=== PATIENT | female | born 1995 | race Caucasian/White ===

== ENCOUNTER 2025-02-03 01:35 | Emergency (ER) | payer OTHER ==
[2025-02-03 01:42] VITALS: BP 120/71; PULSE 92; RESP 18; TEMP 98.2; BMI 36.8
[2025-02-03 02:27] LABS: HCG,QUALITATIVE URINE Negative
[2025-02-03 03:08] LABS: HCV DIAGNOSTIC IN-HOUSE W/RFLX NON-REACTIVE (NONREACTIVE); HIV INTERPRETATION NEGATIVE (NEGATIVE)
[2025-02-03 03:11] LABS: URINE APPEARANCE HAZY; URINE BILIRUBIN NEGATIVE (NEGATIVE); URINE COLOR YELLOW; URINE GLUCOSE (UA) NEGATIVE (NEGATIVE); URINE KETONE NEGATIVE (NEGATIVE)
[2025-02-03 03:12] LABS: URINE LEUK ESTERASE 1+ (NEGATIVE); URINE NITRITE Positive (NEGATIVE); URINE PROTEIN 1+ (NEGATIVE); URINE UROBILINOGEN 1 mg/dL (0.2-1.0)
[2025-02-03 03:13] LABS: EPI CELLS MODERATE /uL (0-25.1); URINE RBC 228 /uL (0-23.9); URINE WBC 1746.7 /uL (0-25.8)
[2025-02-03] MEDS: CEPHALEXIN MONOHYDRATE 500 MG CAPSULE (UD) PO ONE (03:55)
== END 2025-02-03 03:55 | disposition home or self-care (01) ==
LOC: JER 01:35
DX: N30.00 Acute cystitis without hematuria (principal); R30.0 Dysuria; R35.0 Frequency of micturition; M54.50 Low back pain, unspecified
CPT/HCPCS: 36415; 81003; 84703; 86803; 87086; 87389; 99283-25